=== PATIENT | female | born 1970 | race Asian ===

== ENCOUNTER 2016-08-20 10:23 | Emergency (ER) | payer MEDICAID ==
[~2016-08-20] VITALS: Ht 165.1 cm; Wt 63.0 kg
[2016-08-20 10:38] VITALS: BP_SYST 149
[2016-08-20 11:18] VITALS: BP_SYST 132
== END 2016-08-20 11:19 | disposition home or self-care (01) ==
LOC: SED 10:23
DX: R22.31 Localized swelling, mass and lump, right upper limb (principal)
CPT/HCPCS: 99283